=== PATIENT | male | born 1990 | race Caucasian/White ===

== ENCOUNTER 2023-01-06 19:12 | Emergency (ER) | payer BC, MEDICAID ==
[2023-01-06 19:31] LABS: Absolute Neutrophil Ct (ANC) 9.19 x10^3/uL (1.4-6.9); BASOPHIL % 0.7 % (0.0-0.4); Basophil (Absolute #) 0.11 x10^3/uL (0-0.4); Eosinophil % 2.8 % (0.00-5.0); Eosinophil (Absolute #) 0.45 x10^3/uL (0-0.5); Hematocrit 41.3 % (42-50); Hemoglobin 13.7 g/dL (12.5-18.0); IMMATURE GRAN # 0.05 x10^3u/L (0.00-0.03); IMMATURE GRAN % 0.3 % (0.00-0.4); Lymphocyte (Absolute #) 4.78 x10^3/uL (1.0-4.6); Lymphocytes % 30.1 % (24.0-44.0); Mean Cell Volume 91.8 fL (78-100); Mean Corpuscular Hemoglobin 30.4 pg (26-32); Mean Corpuscular Hgb Concent. 33.2 g/dL (32-36); Mean Platelet Volume 10.4 fL (7.5-11.0); Monocyte (Absolute #) 1.28 x10^3/uL (0.0-1.3); Monocytes % 8.1 % (0.0-12.0); Platelet Count 298 x10^3/uL (150-450); Red Cell Distribution Width 12.6 % (11.5-14.0); White Blood Count 15.9 x10^3/uL (4.0-10.5)
[2023-01-06 19:42] LABS: ALBUMIN 4.6 g/dL (3.5-5.0); ALKALINE PHOSPHATASE 73 U/L (38-126); ANION GAP 16.3 MEQ/L (5-15); BLOOD UREA NITROGEN 10 mg/dL (9-20); CHLORIDE 101 mmol/L (98-107); Calcium 8.8 mg/dL (8.4-10.2); Carbon Dioxide 27 mmol/L (22-30); Creatinine 1 0.71 mg/dL (0.66-1.25); EST GLOMERULAR FILTRATION RATE > 60.0 ML/MIN; ETHYL ALCOHOL < 10 mg/dL (0-10); Glucose 108 mg/dL (74-106); Potassium 3.5 mmol/L (3.5-5.1); SGOT/AST 22 U/L (17-59); SGPT/ALT 21 U/L (0-50); SODIUM 141 mmol/L (137-145); Total Protein 7.7 g/dL (6.3-8.2)
[2023-01-06 20:23] LABS: Amphetamine,Urine NEGATIVE (NEGATIVE); Barbiturate,Urine NEGATIVE (NEGATIVE); Benzodiazepine,Urine NEGATIVE (NEGATIVE); Cocaine,Urine NEGATIVE (NEGATIVE); Methadone,Urine NEGATIVE (NEGATIVE); Opiate,Urine NEGATIVE (NEGATIVE); PCP,Urine NEGATIVE (NEGATIVE); THC,Urine POSITIVE (NEGATIVE)
[2023-01-06 21:09] VITALS: O2SAT 97
--- NOTE | 2023-01-06 22:06 | ERPHSYRPT ---
- History of Present Illness Time Seen by Provider: 01/06/23 19:20 Historian: patient Exam Limitations: no limitations Patient Subjective Stated Complaint: neck and throat pain, which radiates down to upper chest and left side of ribs Triage Nursing Assessment: Pt ambulated into ER without difficulty, mom at bedside. Pt c/o neck pain which comes down to the upper chest area and to the left side of ribs, x1 week off and on. Pt smokes 2 PPD x15 years and wonders if it's from chewing Nicorette gum as he's trying to stop smoking, and is chewing it alot. Pt alert and oriented x4, cooperative. Lungs clear, heart tones reg. Pt has anxiety but is feeling less anxious now that he is being seen. Pt has an appt with Dr. Ziegler tomorrow. Physician History: Patient is a 32-year-old male presents to our ED for evaluation of neck pain that radiates into his upper chest. Pain tends to radiate towards the left chest and left rib area. Symptoms started approximately 1 week ago. Patient advises that he is a smoker. He smokes approximately 2 packs/day. Patient also chews tobacco. Patient is trying to quit. Patient currently chews Nicorette gum in an attempt to quit. Symptoms are constant. Symptoms are moderate in intensity. No specific worsening improving factors. Patient currently has a follow-up appointment scheduled Dr. Ziegler tomorrow. Symptoms are mild to moderate in intensity. No specific worsening improving factors. Patient denies a history of the same. Mother at bedside. They voiced no other complaints or concerns at this time Portions of this note were created with voice recognition technology. There may be grammatical, spelling, punctuation or sound alike errors Timing/Duration: day(s) (1 week) Activities at Onset: none Quality: aching Location: other (Lower neck upper chest and left rib area) Severity of Pain-Max: moderate Severity of Pain-Current: mild Modifying Factors: Improves With: other (Mastication and palpation to the anterior neck musculature) Associated Symptoms: denies symptoms Prior Chest Pain/Cardiac Workup: no prior chest pain Nitro Today/Relief: no nitro taken today Aspirin Treatment Today: no aspirin today Allergies/Adverse Reactions: No Known Drug Allergies Allergy (Unverified 01/06/23 19:29) Home Medications: Buprenorphine HCl/Naloxone HCl [Buprenorphine-Nalox 8-2 mg Tab] 1 tab PO BID 01/06/23 [History] Hx Tetanus, Diphtheria Vaccination/Date Given: Yes Hx Influenza Vaccination/Date Given: No Hx Pneumococcal Vaccination/Date Given: No Travel Risk - International Travel Have you traveled outside of the country in past 3 weeks: No - Coronavirus Screening Are you exhibiting any of the following symptoms?: No Close contact with a COVID-19 positive Pt in past 14-21 Days: No - Vaccine Status Have you recieved a Covid-19 vaccination: Yes Agency Cashier: [employer] - Vaccination Dates Date of 2cond Vaccination (if applicable): . - Review of Systems Constitutional: No Symptoms, No Fever, No Chills Eyes: No Symptoms Ears, Nose, & Throat: No Symptoms Respiratory: No Symptoms, No Cough, No Dyspnea Cardiac: No Symptoms, No Chest Pain, No Edema, No Syncope Abdominal/Gastrointestinal: No Symptoms, No Abdominal Pain, No Nausea, No Vomiting, No Diarrhea Genitourinary Symptoms: No Symptoms, No Dysuria Musculoskeletal: No Symptoms, No Back Pain, No Neck Pain Skin: No Symptoms, No Rash Neurological: No Symptoms, No Dizziness, No Focal Weakness, No Sensory Changes Psychological: No Symptoms Endocrine: No Symptoms Hematologic/Lymphatic: No Symptoms Immunological/Allergic: No Symptoms All Other Systems: Reviewed and Negative - Past Medical History Pertinent Past Medical History: Yes Neurological History: Seizures ENT History: No Pertinent History Cardiac History: No Pertinent History Respiratory History: No Pertinent History Endocrine Medical History: No Pertinent History Musculoskeletal History: No Pertinent History GI Medical History: No Pertinent History History: No Pertinent History Psycho-Social History: Anxiety, Depression Male Reproductive Disorders: No Pertinent History - Past Surgical History Past Surgical History: Yes Neuro Surgical History: No Pertinent History Cardiac: No Pertinent History Respiratory: No Pertinent History Gastrointestinal: Appendectomy Genitourinary: No Pertinent History Musculoskeletal: No Pertinent History Male Surgical History: No Pertinent History - Social History Smoking Status: Current every day smoker How long have you smoked: 15 yrs Exposure to second hand smoke: Yes Drug Use: marijuana Patient Lives Alone: No - Nursing Vital Signs Nursing Vital Signs: Initial Vital Signs Temperature 98.1 F 01/06/23 19:15 Pulse Rate 84 01/06/23 19:15 Respiratory Rate 18 01/06/23 19:15 Blood Pressure 114/62 01/06/23 19:15 O2 Sat by Pulse Oximetry 100 01/06/23 19:15 Pain Scale Pain Intensity 0 - Physical Exam General Appearance: no apparent distress, alert Eye Exam: PERRL/EOMI, eyes nml inspection Ears, Nose, Throat Exam: normal ENT inspection, TMs normal, pharynx normal, moist mucous membranes Neck Exam: normal inspection, non-tender, supple, full range of motion, other (Tenderness to palpation anterior neck and bilateral sternocleidomastoid musculature. No lymphadenopathy. Overlying soft tissue intact. No signs of trauma.) Respiratory Exam: normal breath sounds, lungs clear, airway intact, No respiratory distress Cardiovascular Exam: regular rate/rhythm, normal heart sounds, normal peripheral pulses Gastrointestinal/Abdomen Exam: soft, No tenderness, No mass Back Exam: normal inspection, No CVA tenderness, No vertebral tenderness Extremity Exam: normal inspection, normal range of motion Neurologic Exam: alert, oriented x 3, cooperative, normal mood/affect, sensation nml, No motor deficits Skin Exam: normal color, warm, dry Lymphatic Exam: No adenopathy SpO2 Interpretation: normal SpO2: 97 O2 Delivery: Room Air - Course Nursing assessment & vital signs reviewed: Yes EKG Interpreted by Me: RATE (80), Sinus Rhythm, NORMAL AXIS, NORMAL INTERVALS - Radiology Exams Chest X-ray Interpretation: Interpreted by me (Negative chest x-ray) Ordered Tests: Active Orders 24 hr Category Date Time Status Neuroscience Director Na STAT Care 01/06/23 19:15 Active EKG-ER Only STAT Care 01/06/23 19:14 Active IV Insertion STAT Care 01/06/23 19:14 Active Pulse Oximetry (ED) STAT Care 01/06/23 19:14 Active CHEST 1 VIEW (PORTABLE) Stat Exams 01/06/23 19:15 Taken CBC W DIFF Stat Lab 01/06/23 19:27 Completed CMP Stat Lab 01/06/23 19:27 Completed D-DIMER QUANTITATIVE Stat Lab 01/06/23 19:27 Completed ETHYL ALCOHOL Stat Lab 01/06/23 19:27 Completed NT PRO BNPII Stat Lab 01/06/23 19:27 Completed TROPONIN Q4H Lab 01/06/23 19:27 Completed TROPONIN Q4H Lab 01/06/23 22:34 Completed TROPONIN Q4H Lab 01/07/23 03:15 Ordered Urine Triage Profile Stat Lab 01/06/23 19:27 Completed Lab/Rad Data: Laboratory Result Diagrams 01/06/23 19:27 01/06/23 19:27 Laboratory Results 01/06/23 01/06/23 01/06/23 Range/Units 22:34 22:34 22:34 WBC (4.0-10.5) x10^3/uL RBC (4.1-5.6) x10^6/uL Hgb (12.5-18.0) g/dL Hct (42-50) % MCV (78-100) fL MCH (26-32) pg MCHC (32-36) g/dL RDW (11.5-14.0) % Plt Count (150-450) x10^3/uL MPV (7.5-11.0) fL Gran % (36.0-66.0) % Immature Gran % (Auto) (0.00-0.4) % Nucleat RBC Rel Count (0.00-0.1) % Eos # (Auto) (0-0.5) x10^3/uL Immature Gran # (Auto) (0.00-0.03) x10^3u/L Absolute Lymphs (auto) (1.0-4.6) x10^3/uL Absolute Monos (auto) (0.0-1.3) x10^3/uL Absolute Nucleated RBC (0.00-0.01) x10^3u/L Lymphocytes % (24.0-44.0) % Monocytes % (0.0-12.0) % Eosinophils % (0.00-5.0) % Basophils % (0.0-0.4) % Absolute Granulocytes (1.4-6.9) x10^3/uL Basophils # (0-0.4) x10^3/uL D-Dimer (0.0-0.50) mg/L Sodium (137-145) mmol/L Potassium (3.5-5.1) mmol/L Chloride (98-107) mmol/L Carbon Dioxide (22-30) mmol/L Anion Gap (5-15) MEQ/L BUN (9-20) mg/dL Creatinine (0.66-1.25) mg/dL Estimated GFR ML/MIN Glucose (74-106) mg/dL Calcium (8.4-10.2) mg/dL Total Bilirubin (0.2-1.3) mg/dL AST (17-59) U/L ALT (0-50) U/L Alkaline Phosphatase (38-126) U/L Troponin I < 0.012 (0.000-0.034) ng/mL NT-Pro-B Natriuret Pep (<300) pg/mL Serum Total Protein (6.3-8.2) g/dL Albumin (3.5-5.0) g/dL Urine Opiates Level (NEGATIVE) Ur Methadone (NEGATIVE) Urine Barbiturates (NEGATIVE) Ur Phencyclidine (PCP) (NEGATIVE) Urine Amphetamine (NEGATIVE) U Benzodiazepine Level (NEGATIVE) Urine Cocaine (NEGATIVE) Urine Marijuana (THC) (NEGATIVE) Ethyl Alcohol (0-10) mg/dL Influenza Type A Ag NEGATIVE (NEGATIVE) Influenza Type B Ag NEGATIVE (NEGATIVE) RSV (PCR) NEGATIVE (NEGATIVE) SARS-CoV-2 (PCR) NEGATIVE (NEGATIVE) Group A Strep Antibody NOT DETECTED (NEGATIVE) 01/06/23 01/06/23 01/06/23 Range/Units 19:27 19:27 19:27 WBC (4.0-10.5) x10^3/uL RBC (4.1-5.6) x10^6/uL Hgb (12.5-18.0) g/dL Hct (42-50) % MCV (78-100) fL MCH (26-32) pg MCHC (32-36) g/dL RDW (11.5-14.0) % Plt Count (150-450) x10^3/uL MPV (7.5-11.0) fL Gran % (36.0-66.0) % Immature Gran % (Auto) (0.00-0.4) % Nucleat RBC Rel Count (0.00-0.1) % Eos # (Auto) (0-0.5) x10^3/uL Immature Gran # (Auto) (0.00-0.03) x10^3u/L Absolute Lymphs (auto) (1.0-4.6) x10^3/uL Absolute Monos (auto) (0.0-1.3) x10^3/uL Absolute Nucleated RBC (0.00-0.01) x10^3u/L Lymphocytes % (24.0-44.0) % Monocytes % (0.0-12.0) % Eosinophils % (0.00-5.0) % Basophils % (0.0-0.4) % Absolute Granulocytes (1.4-6.9) x10^3/uL Basophils # (0-0.4) x10^3/uL D-Dimer (0.0-0.50) mg/L Sodium (137-145) mmol/L Potassium (3.5-5.1) mmol/L Chloride (98-107) mmol/L Carbon Dioxide (22-30) mmol/L Anion Gap (5-15) MEQ/L BUN (9-20) mg/dL Creatinine (0.66-1.25) mg/dL Estimated GFR ML/MIN Glucose (74-106) mg/dL Calcium (8.4-10.2) mg/dL Total Bilirubin (0.2-1.3) mg/dL AST (17-59) U/L ALT (0-50) U/L Alkaline Phosphatase (38-126) U/L Troponin I < 0.012 (0.000-0.034) ng/mL NT-Pro-B Natriuret Pep 172 (<300) pg/mL Serum Total Protein (6.3-8.2) g/dL Albumin (3.5-5.0) g/dL Urine Opiates Level NEGATIVE (NEGATIVE) Ur Methadone NEGATIVE (NEGATIVE) Urine Barbiturates NEGATIVE (NEGATIVE) Ur Phencyclidine (PCP) NEGATIVE (NEGATIVE) Urine Amphetamine NEGATIVE (NEGATIVE) U Benzodiazepine Level NEGATIVE (NEGATIVE) Urine Cocaine NEGATIVE (NEGATIVE) Urine Marijuana (THC) POSITIVE (NEGATIVE) Ethyl Alcohol (0-10) mg/dL Influenza Type A Ag (NEGATIVE) Influenza Type B Ag (NEGATIVE) RSV (PCR) (NEGATIVE) SARS-CoV-2 (PCR) (NEGATIVE) Group A Strep Antibody (NEGATIVE) 01/06/23 01/06/23 01/06/23 Range/Units 19:27 19:27 19:27 WBC 15.9 H (4.0-10.5) x10^3/uL RBC 4.50 (4.1-5.6) x10^6/uL Hgb 13.7 (12.5-18.0) g/dL Hct 41.3 L (42-50) % MCV 91.8 (78-100) fL MCH 30.4 (26-32) pg MCHC 33.2 (32-36) g/dL RDW 12.6 (11.5-14.0) % Plt Count 298 (150-450) x10^3/uL MPV 10.4 (7.5-11.0) fL Gran % 58.0 (36.0-66.0) % Immature Gran % (Auto) 0.3 (0.00-0.4) % Nucleat RBC Rel Count 0.0 (0.00-0.1) % Eos # (Auto) 0.45 (0-0.5) x10^3/uL Immature Gran # (Auto) 0.05 H (0.00-0.03) x10^3u/L Absolute Lymphs (auto) 4.78 H (1.0-4.6) x10^3/uL Absolute Monos (auto) 1.28 (0.0-1.3) x10^3/uL Absolute Nucleated RBC 0.00 (0.00-0.01) x10^3u/L Lymphocytes % 30.1 (24.0-44.0) % Monocytes % 8.1 (0.0-12.0) % Eosinophils % 2.8 (0.00-5.0) % Basophils % 0.7 (0.0-0.4) % Absolute Granulocytes 9.19 H (1.4-6.9) x10^3/uL Basophils # 0.11 (0-0.4) x10^3/uL D-Dimer < 0.19 (0.0-0.50) mg/L Sodium 141 (137-145) mmol/L Potassium 3.5 (3.5-5.1) mmol/L Chloride 101 (98-107) mmol/L Carbon Dioxide 27 (22-30) mmol/L Anion Gap 16.3 H (5-15) MEQ/L BUN 10 (9-20) mg/dL Creatinine 0.71 (0.66-1.25) mg/dL Estimated GFR > 60.0 ML/MIN Glucose 108 H (74-106) mg/dL Calcium 8.8 (8.4-10.2) mg/dL Total Bilirubin 0.30 (0.2-1.3) mg/dL AST 22 (17-59) U/L ALT 21 (0-50) U/L Alkaline Phosphatase 73 (38-126) U/L Troponin I (0.000-0.034) ng/mL NT-Pro-B Natriuret Pep (<300) pg/mL Serum Total Protein 7.7 (6.3-8.2) g/dL Albumin 4.6 (3.5-5.0) g/dL Urine Opiates Level (NEGATIVE) Ur Methadone (NEGATIVE) Urine Barbiturates (NEGATIVE) Ur Phencyclidine (PCP) (NEGATIVE) Urine Amphetamine (NEGATIVE) U Benzodiazepine Level (NEGATIVE) Urine Cocaine (NEGATIVE) Urine Marijuana (THC) (NEGATIVE) Ethyl Alcohol < 10 (0-10) mg/dL Influenza Type A Ag (NEGATIVE) Influenza Type B Ag (NEGATIVE) RSV (PCR) (NEGATIVE) SARS-CoV-2 (PCR) (NEGATIVE) Group A Strep Antibody (NEGATIVE) - Progress Progress: improved Air Movement: good Progress Note: Patient is a 32-year-old male presents to our ED for evaluation of chest pain. Chest pain has been going on approximately 1 week. Physical exam nonremarkable. Patient has no significant past medical history. Test ordered include EKG which revealed normal sinus rhythm no ischemic changes. Chest x-ray was within normal limits. CBC CMP within normal limits. Troponin negative. D-dimer negative. Toxicology screen negative for markers that would explain patient's symptomology. COVID-negative, rapid strep negative proBNP negative as well. Patient's heart score is 0. No indication for further work-up. No indication for hospitalization. Patient requesting discharge. Will discharge home. Patient currently has an appointment scheduled to see his primary care doctor tomorrow morning. Mother at bedside. They voiced no other complaints or concerns at this time. Portions of this note were created with voice recognition technology. There may be grammatical, spelling, punctuation or sound alike errors 01/06/23 23:23 Complexity of problem addressed is moderate, acute symptoms complicated pr esentation and work-up. No critical care time Complexity of data reviewed and analyzed is moderate. Dr. Brady independently reviewed and analyzed the chest x-ray EKG as well as laboratory findings. Clinical correlation made with physical exam findings. No significant findings observed on physical exam or work-up. Will discharge home. No indication for further work-up or hospitalization. Risk of complication and or risk morbidity/mortality of patient management is moderate. A prescription for Toradol was forwarded to patient's pharmacy for pain control. Patient's work-up appears to be musculoskeletal at this time. Patient's pain is reproduced with palpation to the anterior neck and upper chest. We will give a trial of anti-inflammatory to see if this improves her reviewed and resolved patient's symptoms. Patient agrees to follow-up with his primary care doctor tomorrow as planned. Plan of care established via shared decision making. No social determinants of health present to impede follow-up. Time spent to discharge patient is approximately 15 minutes. Portions of this note were created with voice recognition technology. There may be grammatical, spelling, punctuation or sound alike errors 01/06/23 23:25 Blood Culture(s) Obtained: No Antibiotics given: No Counseled pt/family regarding: lab results, diagnosis, need for follow-up, rad results - Departure Departure Disposition: Home Clinical Impression: Chest pain, Leukocytosis Condition: Stable Critical Care Time: No Referrals: PHILIP ZIEGLER [Primary Care Provider] - Follow up/PCP as directed Additional Instructions: Discharge/Care Plan JORGE A NARANJO was seen on 01/06/23 in the Emergency Room. The patient was counseled regarding Diagnosis,Lab results, Imaging studies, need for follow up and when to return to the Emergency Room. Prescriptions given: Discharge Note I have spoken with the patient and/or caregivers. I have explained the patient's condition, diagnosis and treatment plan based on the information available to me at this time. I have answered the patient's and/or caregiver's questions and addressed any concerns. The patient and/or caregivers have as good understanding of the patient's diagnosis, condition and treatment plan as can be expected at this point. The vital signs have been stable. The patient's condition is stable and appropriate for discharge from the emergency department. The patient will pursue further outpatient evaluation with the primary care physician or other designated or consulting physician as outlined in the discharge instructions. The patient and/or caregivers are agreeable to this plan of care and follow-up instructions have been explained in detail. The patient and/or caregivers have received these instruction. The patient/and or caregivers are aware that any significant change in condition or worsening of symptoms should prompt an immediate return to this or the closest emergency department or call 911.
[2023-01-06 23:02] VITALS: BP 128/86; PULSE 60
[2023-01-06 23:13] LABS: INFLUENZA A NEGATIVE (NEGATIVE); INFLUENZA B NEGATIVE (NEGATIVE); RESPIRATORY SYNCTIAL VIRUS NEGATIVE (NEGATIVE); SARS-CoV-2 Xpert Express NEGATIVE (NEGATIVE)
[2023-01-06] MEDS ORDERED: TORAdol 30 mg Injection IV ONE (23:29)
[2023-01-06] MEDS ORDERED: TORAdol 30 mg Injection ONE (23:29)
--- NOTE | 2023-01-07 08:45 | XRAY ---
Indication: Pain. Comparison: None Portable chest hyperinflated and clear. Heart not enlarged. Bony thorax intact. Impression: Nonacute chest.
== END 2023-01-06 23:46 | disposition home or self-care (01) ==
LOC: ED 19:12
DX: R07.9 Chest pain, unspecified (principal); D72.829 Elevated white blood cell count, unspecified; M54.2 Cervicalgia; Z79.891 Long term (current) use of opiate analgesic; Z72.0 Tobacco use
CPT/HCPCS: 0241U; 36000; 36415; 71045; 80053; 80307; 82077; 83880; 84484; 85025; 85379; 87651; 93005; 93041; 94760; 96374; 99284; J1885